=== PATIENT | male | born 1985 | race Caucasian/White ===

== ENCOUNTER 2020-08-09 23:30 | Emergency (ER) | payer MEDICAID ==
[~2020-08-09] VITALS: Ht 177.8 cm; Wt 122.5 kg
--- NOTE | 2020-08-09 23:39 | NUR ---
PT AMBULATED TO BED 4
[2020-08-09 23:41] VITALS: BP 160/102
--- NOTE | 2020-08-09 23:55 | NUR ---
PT COMING IN FOR TOOTHACHE, SWELLING TO FACE AND GUMS, AND EXTREME PAIN. PT HAS A BROKEN MOLAR TO LEFT UPPER TOOTH NOT ABLE TO SEE DENTIST TIL SUNDAY. PAIN STARTED YESTERDAY BUT WOKE HIM UP TONIGHT DUE TO THE SEVERITY, 08/14. DENIES ANY DRAINAGE FROM AREA. AFEBRILE NKA HX - HTN, DM
[2020-08-09] MEDS: PENICILLIN V POTASSIUM 250 MG TAB PO ONE (23:59)
[2020-08-09] MEDS: LIDOCAINE VISCOUS 2% 20 ML UDC PO ONE (23:59)
--- NOTE | 2020-08-10 00:29 | NUR ---
Patient discharged with v/s stable. Written and verbal after care instructions given and explained. Patient alert, oriented and verbalized understanding of instructions. Ambulatory with steady gait. All questions addressed prior to discharge. ID band removed. Patient advised to follow up with PMD. Rx of penicillin and norco given. Patient educated on indication of medication including possible reaction and side effects. Opportunity to ask questions provided and answered.
== END 2020-08-10 00:29 | disposition home or self-care (01) ==
LOC: MED 23:30
DX: K04.7 Periapical abscess without sinus (principal); E11.9 Type 2 diabetes mellitus without complications; I10 Essential (primary) hypertension
CPT/HCPCS: 41800; 99283; 99284